=== PATIENT | male | born 1985 | race Caucasian/White ===

== ENCOUNTER 2019-09-27 00:14 | Emergency (ER) | payer SELFPAY ==
[~2019-09-27] VITALS: Ht 180.3 cm; Wt 108.3 kg
[2019-09-27] MEDS ORDERED: ACETAMINOPHEN WITH CODEINE 300/30MG TABLET PO ONE (04:45)
[2019-09-27] MEDS ORDERED: LIDOCAINE HCL/PF 1% 10 MG/ML 5ML VIAL IJ ONE (04:45)
[2019-09-27] MEDS ORDERED: BACITRACIN ZINC OINT UDPKT TOP ONE (04:45)
[2019-09-27 05:31] VITALS: BP 156/98
== END 2019-09-27 05:35 | disposition home or self-care (01) ==
LOC: ER 00:14
DX: S61.512A Laceration without foreign body of left wrist, initial encounter (principal); X58.XXXA Exposure to other specified factors, initial encounter; Y93.89 Activity, other specified; Y92.89 Other specified places as the place of occurrence of the external cause; Y99.8 Other external cause status
CPT/HCPCS: 12002; 73110; 99283; J3490

== ENCOUNTER 2019-10-01 18:41 | Emergency (ER) | payer SELFPAY ==
[~2019-10-01] VITALS: Ht 180.3 cm; Wt 118.0 kg
[2019-10-01] MEDS ORDERED: BACITRACIN ZINC OINT UDPKT TOP ONE (21:00)
[2019-10-01 21:41] VITALS: BP 130/87
== END 2019-10-01 21:45 | disposition home or self-care (01) ==
LOC: ER 18:41
DX: Z48.00 Encounter for change or removal of nonsurgical wound dressing (principal); S61.512D Laceration without foreign body of left wrist, subsequent encounter; X58.XXXD Exposure to other specified factors, subsequent encounter
CPT/HCPCS: 99282